=== PATIENT | female | born 1980 | race Caucasian/White ===

== ENCOUNTER → 2017-09-03 | Outpatient (CLI) | payer SELFPAY ==
[2013-11-20 15:25] VITALS: BP 113/80
--- NOTE | 2017-09-03 11:47 | US ---
HISTORY: Enlarged thyroid. Study: Thyroid ultrasound. Comparison: None. Technique: Multiple jolley scale and color Doppler images of the thyroid were obtained. Findings: The right and left lobe of the thyroid demonstrate normal echotexture. The right lobe of th e thyroid measures 4.5 x 2.1 x 2.2 cm and demonstrates a couple of a solid-appearing isoechoic nodule s which measure up to 11 mm in diameter. A few tiny subcentimeter cystic areas are noted as well. The left lobe of the thyroid measures 4.6 x 1.6 x 1.9 cm and demonstrates a solid-appearing 15 mm isoech oic nodule in the lower pole. A few tiny subcentimeter cystic areas are noted as well. There is no ab normal vascular flow on Doppler interrogation. The thyroid isthmus is normal in its appearance and m easures 4 mm in thickness. IMPRESSION: Bilateral thyroid nodules with the largest nodule located on the left and measuring up to 15 mm in di ameter. Follow-up thyroid ultrasound in 6-12 months is recommended to evaluate for interval change. Reported By:
== END | disposition home or self-care (01) | DRG 645 ==
LOC: RAD 10:27
PROVIDERS: ATTEND Physician Assistant
DX: E04.8 Other specified nontoxic goiter (principal)
CPT/HCPCS: 76536